=== PATIENT | male | born 2005 | race Caucasian/White ===

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

== ENCOUNTER 2024-04-02 09:42 | Outpatient (CLI) | payer OTHER, SELFPAY ==
--- NOTE | ~2024-04-02 | US_ITS ---
EXAMINATION: US soft tissue groin LT DATE: 04/02/2024 10:00 INDICATION: Unilateral inguinal hernia without obstruction. Soft palpable lump at the left upper pelv is. TECHNIQUE: Multiple grayscale and Doppler ultrasound images of the left upper pelvis/inguinal region of concern were obtained. COMPARISON: None FINDINGS: The palpable abnormality of concern corresponds to the 2.6 x 1.7 x 1.4 cm left testis and associated epididymis. These are remain superficial to the pelvic wall likely in the upper left inguinal canal. The epididymal head measures 6 mm in maximal diameter. Vascular flow identified in the left testis on color Doppler. There is a associated small left hydrocele. IMPRESSION: 1. The left inguinal palpable abnormality of concern corresponds to a likely undescended left testis and epididymis with associated small hydrocele in the upper left inguinal canal. Reviewed, dictated and finalized at location A. E PATCHER IMPRESSION: 1. The left inguinal palpable abnormality of concern corresponds to a likely un descended left testis and epididymis with associated small hydrocele in the upp er left inguinal canal.
== END 2024-04-02 09:43 | disposition home or self-care (01) ==
PROVIDERS: PCP Family Medicine; Visit Provider Nurse Practitioner Family
DX: K40.90 Unilateral inguinal hernia, without obstruction or gangrene, not specified as recurrent (principal)
CPT/HCPCS: 76882

== ENCOUNTER 2024-07-16 13:06 | Outpatient (CLI) | payer OTHER, SELFPAY ==
--- NOTE | ~2024-07-16 | US_ITS ---
EXAMINATION: US scrotum doppler DATE: 07/16/2024 14:13 INDICATION: Undescended testes TECHNIQUE: Sonographic evaluation of the scrotum was performed assessing grayscale appearance and col or Doppler flow. Spectral Doppler evaluation was also performed. COMPARISON: 04/02/2024. FINDINGS: RIGHT TESTICLE: The right testicle measures 2.6 x 4.3 x 1.7 cm. Arterial and venous flow are present. Trace right-sided hydrocele is present. RIGHT EPIDIDYMIS: The right epididymis measures 8.3 x 8.8 x 4.3 mm. LEFT TESTICLE (located within the left groin): The left testicle measures 1.9 x 3.3 x 1.4 cm. Arterial and venous flow are demonstrated. Trace left-sided hydrocele is present. LEFT EPIDIDYMIS: The left epididymis measures 10.9 x 14 x 5.9 mm. IMPRESSION: Redemonstration of the left testicle located within the left groin, rather than within the left scrot um. Trace hydrocele detected bilaterally. Reviewed, dictated and finalized at location A. IMPRESSION: Redemonstration of the left testicle located within the left groin, rather than within the left scrotum. Trace hydrocele detected bilaterally.
--- NOTE | ~2024-07-16 | CT_ITS ---
CT pelvis wo con Ordering provider: Nora Mclaughlin MD History: . retractile testicle . Comparison: None. Technique: CT pelvis without oral and IV contrast. . Automated exposure control and iterative recons truction technique were employed. The dose-length product was 150.64 mGy-cm. Findings: BONES: No pelvic fracture or hip dislocation. Normal visualized lower lumbar spine. The hip and sacro iliac joint spaces are well maintained. SUPERFICIAL SOFT TISSUES: Soft tissue density is seen in the left inguinal area suggestive of Retract ile testicle which measures 3.8 x 1.6 cm. The left scrotum is empty. The right testicle is seen in po sition. PELVIC ORGANS: The bladder is underfilled. VISUALIZED BOWEL AND MESENTERY: Normal. No free air or free fluid. No lymphadenopathy. RETROPERITONEUM: Normal. IMPRESSION: Left retractile testicle with testicle seen in the left inguinal area. Reviewed, dictated and finalized at location A.
--- OUTSIDE RECORDS SUMMARY | 2024-07-16 15:34 | XMS_ITS | Encounter Summary ---
Author Organization [facility] Address 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
--- OUTSIDE RECORDS SUMMARY | 2024-07-16 15:34 | XMS_ITS | Encounter Summary ---
Author Organization [facility] Address 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) Social History Tobacco Use Types Packs/Day Years Used Date Smoking Tobacco: Never Assessed Sex and Gender Information Value Date Recorded Sex Assigned at Not on file Legal Sex Male 4:28 AM TAR CHASER Gender Identity Not on file Sexual Orientation Not on file documented as of this encounter Plan of Treatment Not on file documented as of this encounter Visit Diagnoses Diagnosis 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
--- OUTSIDE RECORDS SUMMARY | 2024-07-16 15:34 | XMS_ITS | Clinical Summary ---
Author Organization [facility] Address [address] [place] [address] Phone Care Team Providers Care Skip Operator Name Role Phone Yesi Suarez MD Primary Care Provider + Allergies No known active allergies Medications pediatric multivitamins Oral Chew Take 1 Tab by mouth daily. 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 Gender Identity Not on file Sexual Orientation Not on file Occupation Industry Job Start Date Job End Date Not on file Not on file Not on file Not on file Last Filed Vital Signs Vital Sign Reading Time Taken Comments Blood Pressure 100/57 08/22/2012 10:04 AM CDT Pulse 95 08/22/2012 10:04 AM CDT Temperature 36.6 C (97.9 F) 08/22/2012 10:04 AM CDT Respiratory Rate 26 08/22/2012 10:0 4 AM CDT Oxygen Saturation 100% 08/22/2012 10: 04 AM CDT Inhaled Oxygen Concentration - - Weight 26.7 kg (58 lb 12.8 oz) 08/22/2012 7:08 A M CDT Height 127 cm (4' 2 ) 08/22/2012 7:08 AM CDT Head Circumference 42.5 cm 04/20/2005 3:05 PM ELECTRONIC EQUIPMENT REPAIRER Head Circumference Percentile 3.48% 04/20/2005 3:05 PM ELECTRONIC EQUIPMENT REPAIRER Growth Chart: WHO (Boys, 0-2 years) Body Mass Index 16.54 08/22/2012 7:08 AM CDT Body Mass Index Percentile 66.46% 08/22/2012 7:0 8 AM CDT Growth Chart: [facility] (Boys, 2-2 0 Years) Plan of Treatment Health Maintenance Due Date Last Done Comments CHLAMYDIA SCREENING (ANNUAL) 11-24 YEARS 08/05/2015 INFLUENZA VACCINE (#1) 2023 DTAP/TDAP/TD VACCINES (7 - Td or Tdap) 01/11/2026 01/12/2016, 12/30/2009, 12/23/2005, Additional history exists HEPATITIS B VACCINES Completed 06/24/2005, 04/07/2005, 2004 PNEUMOCOCCAL VACCINE 0-49 YEARS Aged Out 12/23/2005, 04/07/2005, 01/08/2005, Additional history exists No longer eligible based on patient's age to complete this topic HPV VACCINES Completed 12/02/2016, 01/12/2016 Medical Devices Implanted Type Area Cable Systems Installer Device Identifier Shelf Expiration Date Model / Serial / Lot Tube Vent Collar Button Ultrasil [id number] - [id number] Implanted:Qty: 1 on 08/22/2012 by Clifford Wynne MD at [facility] Ear Bilateral : Ear [facility] 06/24/2022 [id number] / / [id number] Insurance BLUE ACCESS [employer]ICE [facility] PERSONIFY HEALTH OA Advance Directives For more information, please contact: [phone] * Full Code (Latest Code Status on File) Date Activated Date Inactivated Comments 08/22/2012 9:55 AM 08/22/2012 12:08 PM * Full Code Date Activated Date Inactivated Comments 08/22/2012 8:27 AM 08/22/2012 9:55 AM Care Teams Skip Operator Relationship Specialty Start Date End Date Yesi Suarez MD [address] [place] [phone] PCP - General Internal Medicine 09/09/11
--- OUTSIDE RECORDS SUMMARY | 2024-07-16 15:34 | XMS_ITS | Patient Health Summary ---
Author Organization [facility] Address [address] [place] [address] Care Team Providers Care Elevator Tender Name Role Phone Unavailable Primary Care Provider Unavailabl e Note from [facility],non-owned Affiliates and Associated Physician Practices is amultiple site organization consisting of ambulatory clinics and hospital sitesin [place], [place], [place] and [place]. This disclosure is being madepursuant to the Care Everywhere program and may not contain all information available regarding this patient. Last updated 18.[facility] Social History Tobacco Use Types Packs/Day Years Used Date Smoking Tobacco: Never Assessed Sex and Gender Information Value Date Recorded Sex Assigned at Not on file Gender Identity Not on file Sexual Orientation Not on file
--- OUTSIDE RECORDS SUMMARY | 2024-07-16 15:34 | XMS_ITS | Encounter Summary ---
Author Organization [facility] Address 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
--- OUTSIDE RECORDS SUMMARY | 2024-07-16 15:34 | XMS_ITS | Encounter Summary ---
Author Organization [employer] (Inspect Manager)[facility] Address [address] [place] [address] Care Team Providers Care Buhr Dresser Name Role Phone Yesi Suarez MD Primary Care Provider + Encounter Details Date Type Department Care Team (Latest Contact Info) Description 2004 Outpatient Historical HIS [facility] Ward, Grover Alvarado MD [address] [place] [phone] ANOMAL SKULL/FACE BONES (Primary Dx) Social History Tobacco Use Types Packs/Day Years Used Date Smoking Tobacco: Never Assessed Sex and Gender Information Value Date Recorded Sex Assigned at Not on file Legal Sex Male 4:28 AM L D RN Gender Identity Not on file Sexual Orientation Not on file documented as of this encounter Plan of Treatment Not on file documented as of this encounter Visit Diagnoses Diagnosis 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
--- OUTSIDE RECORDS SUMMARY | 2024-07-16 15:34 | XMS_ITS | Encounter Summary ---
Author Organization [facility] Address [address] [place] [address] Care Team Providers Care Bilingual Hr Generalist Name Role Phone Yesi Suarez MD Primary Care Provider + Encounter Details Date Type Department Care Team (Late st Contact Info) Description 11/28/2006 Outpatient Historical [facility] Mckayla Bryan MD [address] [facility] [place] [address] Er, Authorized P NO ADDRESS ON FILE Unspecified Otitis Media (Primary Dx) Social History Tobacco Use Types Packs/Day Years Used Date Smoking Tobacco: Never Assessed Sex and Gender Information Value Date Recorded Sex Assigned at Not on file 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 Gender Identity Not on file Sexual Orientation Not on file documented as of this encounter Plan of Treatment Not on file documented as of this encounter Procedures Procedure Name Priority Date/Time Associated Diagnosis Comments CBC WITH DIFFERENTIAL Routine 11/28/2006 1:25 PM CDT CBC WITH DIFFERENTIAL Routine 11/28/2006 1:25 PM CDT CBC WITH DIFFERENTIAL Routine 11/28/2006 1:25 PM CDT LIPASE Routine 11/28/2006 1:25 PM CDT AMYLASE Routine 11/28/2006 1:25 PM CDT COMPREHENSIVE METABOLIC PANEL Routine 11/28/2006 1:25 PM CDT documented in this encounter Results * (ABNORMAL) CBC WITH DIFFERENTIAL (11/28/2006 1:25 PM CDT) Pathologist [facility] NEUTROPHIL ABSOLUTE 14.34 K/uL INTERFACE SYSTEM LYMPHOCYTE ABSOLUTE 2.83 K/uL INTERFACE SYSTEM MONOCYTE ABSOLUTE 0.53 K/uL INTERFACE SYSTEM EOSINOPHIL ABSOLUTE 0.00 K/uL INTERFACE SYSTEM BASOPHILS ABSOLUTE 0.00 K/uL INTERFACE SYSTEM NEUTROPHILS, SEG 81(H) 16 - 60 % INTERFACE SYSTEM LYMPHOCYTES 16(L) 20 - 70 % INTERFAC E SYSTEM MONOCYTES 3 0 - 7 % INTERFACE SYSTEM EOSINOPHILS 0 0 - 8 % INTERFAC E SYSTEM BASOPHILS 0 0 - 1 % INTERFACE SYSTEM PLATELET EST. Consistent w/ count Normal INTERFACE SYSTEM RBC MORPHOLOGY Normal Normal INTER FACE SYSTEM TOXIC GRANULATION Slight INTERFACE SYSTEM 11/28/2006 1:25 PM CDT Mckayla Park MD HEMATOLOGY ORDERABLES Edit ed Performing Organization Address [facility] Phone Number INTERFACE SYSTEM Refer to clinic/hospital department * CBC WITH DIFFERENTIAL (11/28/2006 1:25 PM CDT) [facility] NRBC 0 <=0 /100 WBC INTERFACE SYSTEM 11/28/2006 1:25 PM CDT Mckayla Park MD HEMATOLOGY ORDERABLES Edit ed Performing Organization Address [facility] Phone Number INTERFACE SYSTEM Refer to clinic/hospital department * (ABNORMAL) CBC WITH DIFFERENTIAL (11/28/2006 1:25 PM CDT) Pathologist [facility] WBC 17.7(H) 6.0 - 15.5 K/uL INTERFACE SYSTEM RBC 4.93 3.90 - 5.30 M/uL INTERFACE SYSTEM HEMOGLOBIN 14.0(H) 11.5 - 13.5 g/dL INTERFACE SYSTEM HEMATOCRIT 39.6 34.0 - 40.0 % INTERFACE SYSTEM MCV 80.3 75.0 - 87.0 fL INTERFACE SYSTEM MCH 28.4(H) 22.0 - 28.0 pg INTERFACE SYSTEM MCHC 35.4 30.0 - 36.0 % INTERFACE SYSTEM RDW 13.2 11.5 - 14.5 % INTERFACE SYSTEM RDW-STDEV 38.2 37.1 - 48.7 fL INTERFACE SYSTEM PLATELETS 376(H) 140 - 350 K/uL INTERFACE SYSTEM MPV 10.3 9.3 - 12.4 fL INTERFACE SYSTEM 11/28/2006 1:25 PM CDT Mckayla Park MD HEMATOLOGY ORDERABLES Edit ed Performing Organization Address City/[facility] Co de Phone Number INTERFACE SYSTEM Refer to clinic/hospital department * LIPASE (11/28/2006 1:25 PM CDT) LIPASE 16 13 - 60 U/L INTERFAC E SYSTEM 11/28/2006 1:25 PM CDT Mckayla Park MD CHEMISTRY ORDERABLES Edite d Performing Organization Address [facility] de Phone Number INTERFACE SYSTEM Refer to clinic/hospital department * (ABNORMAL) COMPREHENSIVE METABOLIC PANEL (11/28/2006 1:25 PM CDT) GLUCOSE 94 60 - 110 mg/dL INTERFACE SYSTEM CREATININE 0.33 0.18 - 0.35 mg/dL INTERFACE SYSTEM CALCIUM 9.9 8.8 - 10.8 mg/dL INTERFACE SYSTEM ALKALINE PHOSPHATASE 259 40 - 390 U/L INTERFACE SYSTEM AST 37 12 - 38 U/L INTERFACE SYSTEM ALT 25 0 - 41 U/L INTERFACE SYSTEM TOTAL PROTEIN 7.3 5.9 - 7.8 g/dL INTERFACE SYSTEM ALBUMIN 5.0 3.8 - 5.4 g/dL INTERFACE SYSTEM BILIRUBIN TOTAL 0.2 0.2 - 1.0 mg/dL INTERFACE SYSTEM BUN 4(L) 6 - 20 mg/dL INTERFACE SYSTEM SODIUM 140 135 - 145 mmol/L INTERFACE SYSTEM POTASSIUM 4.9(H) 3.3 - 4.6 mmol/L INTERFACE SYSTEM CHLORIDE 104 96 - 108 mmol/L INTERFACE SYSTEM CO2 21(L) 22 - 30 mmol/L INTERFACE SYSTEM GFR, N/A:MDRD equation validated for pts. >18 yrs. >=60 mL/min/1 .7 sq meter INTERFACE SYSTEM GFR N/A:MDRD equation validated for pts. >18 yrs. >=60 mL/min/1 .7 sq meter INTERFACE SYSTEM Comment: Estimated GFR rate interpretative information for both Americans and non- Americans is available on the [facility] at: [email or web address] Select: Lab Policies and Procedures Select: Reference Ranges - GFR 11/28/2006 1:25 PM CDT Mckayla Park MD CHEMISTRY ORDERABLES Edite d Performing Organization Address City/[facility] Co de Phone Number INTERFACE SYSTEM Refer to clinic/hospital department * AMYLASE (11/28/2006 1:25 PM CDT) AMYLASE 75 28 - 100 U/L INTERFACE SYSTEM 11/28/2006 1:25 PM CDT Mckayla Park MD CHEMISTRY ORDERABLES Edite d Performing Organization Address [facility] de Phone Number INTERFACE SYSTEM Refer to clinic/hospital department documented in this encounter Visit Diagnoses Diagnosis Unspecified otitis media- Primary documented in this encounter Care Teams Bilingual Hr Generalist Relationship Specialty Start Date End Date Yesi Suarez MD [address] [place] [phone] PCP - General Internal Medicine 09/09/11 documented as of this encounter
--- OUTSIDE RECORDS SUMMARY | 2024-07-16 15:34 | XMS_ITS | Referral Summary ---
Author Organization [facility] Address [address] [place] [address] [place] [address] Care Team Providers Care Intelligence Group Supervisor Name Role Phone Unavailable Primary Care Provider Unavailabl e Source Comments [facility],non-[facility] Affiliates and Associated Physician Practices is amultiple site organization consisting of ambulatory clinics and hospital sitesin [place], [place], [place] and [place]. This disclosure is being madepursuant to the Care Everywhere program and may not contain all information available regarding this patient. Last updated 18.[facility] Social History Tobacco Use Types Packs/Day Years Used Date Smoking Tobacco: Never Assessed Sex and Gender Information Value Date Recorded Sex Assigned at Not on file Gender Identity Not on file Sexual Orientation Not on file Plan of Treatment Not on file
--- OUTSIDE RECORDS SUMMARY | 2024-07-16 15:34 | XMS_ITS | Encounter Summary ---
Author Organization [facility] Address 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
--- OUTSIDE RECORDS SUMMARY | 2024-07-16 15:34 | XMS_ITS | Encounter Summary ---
Author Organization [facility] Address 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
--- OUTSIDE RECORDS SUMMARY | 2024-07-16 15:34 | XMS_ITS | Encounter Summary ---
Author Organization [facility] Address 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
--- OUTSIDE RECORDS SUMMARY | 2024-07-16 15:35 | XMS_ITS | Encounter Summary ---
Author Organization [facility] Address 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
--- OUTSIDE RECORDS SUMMARY | 2024-07-16 15:35 | XMS_ITS | Encounter Summary ---
Author Organization [facility] Address 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
--- OUTSIDE RECORDS SUMMARY | 2024-07-16 15:35 | XMS_ITS | Clinical Summary ---
Author Organization [facility] Address [address] [place] [address] Care Team Providers Care Logging Equipment Operator Name Role Phone Unavailable Primary Care Provider Unavailabl e Source Comments [facility],non-owned Affiliates and Associated Physician Practices is amultiple site organization consisting of ambulatory clinics and hospital sitesin [place], [place], [place] and [place]. This disclosure is being madepursuant to the Care Everywhere program and may not contain all information available regarding this patient. Last updated 18.[facility] Social History Tobacco Use Types Packs/Day Years Used Date Smoking Tobacco: Never Assessed Sex and Gender Information Value Date Recorded Sex Assigned at Not on file Gender Identity Not on file Sexual Orientation Not on file Plan of Treatment Health Maintenance Due Date Last Done Comments HIV SCREENING 08/05/2019 HPV VACCINE (1 - Male 3-dose series) 08/05/2019 MENINGOCOCCAL (Group B) VACC INE SHARED DECISION-MAKING (1 of 2 - Standard) 2020 HEPATITIS C SCREENING 07/31/2022 DTAP/TDAP/TD VACCINES (1 - Tdap) 08/05/2023 HEPATITIS B VACCINE (1 of 3 - 19+ 3-dose series) 08/05/2023 COVID-19 VACCINE (1 - 2023-2 5 season) 2024 INFLUENZA VACCINE (#1) 2024 DEPRESSION SCREENING 05/02/2024 ZOSTER VACCINE (1 of 2) 2054 HIB VACCINE Aged Out No longer eligi ble based on patient's age to complete this topic MENINGOCOCCAL GROUPS A/C/Y/W VACCINE Aged Out No longer eligible b ased on patient's age to complete this topic PNEUMOCOCCAL VACCINE Aged Out No long er eligible based on patient's age to complete this topic
--- OUTSIDE RECORDS SUMMARY | 2024-07-16 15:35 | XMS_ITS | Encounter Summary ---
Author Organization [facility] Address 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 Gender Identity Not on file Sexual Orientation Not on file documented as of this encounter Plan of Treatment Not on file documented as of this encounter Procedures Procedure Name Priority Date/Time Associated Diagnosis Comments CBC WITH DIFFERENTIAL Routine 2004 6:15 AM CDT CBC WITH DIFFERENTIAL Routine 2004 6:15 AM CDT CBC WITH DIFFERENTIAL Routine 2004 6:15 AM CDT BASIC METABOLIC PANEL Routine 2004 6:15 AM CDT CBC WITH DIFFERENTIAL Routine 2004 5:30 PM CDT CBC WITH DIFFERENTIAL Routine 2004 5:30 PM CDT CBC WITH DIFFERENTIAL Routine 2004 5:30 PM CDT BASIC METABOLIC PANEL Routine 2004 5:30 PM CDT CBC WITH DIFFERENTIAL Routine 2004 4:32 AM CDT CBC WITH DIFFERENTIAL Routine 2004 4:32 AM CDT BASIC METABOLIC PANEL Routine 2004 4:32 AM CDT CBC WITH DIFFERENTIAL Routine 2004 5:00 PM CDT CBC WITH DIFFERENTIAL Routine 2004 5:00 PM CDT BASIC METABOLIC PANEL Routine 2004 5:00 PM CDT documented in this encounter Results * CBC WITH DIFFERENTIAL (2004 6:15 AM CDT) Pathologist [facility] NEUTROPHIL ABSOLUTE 5.81 K/uL INTERFACE SYSTEM LYMPHOCYTE ABSOLUTE 9.92 K/uL INTERFACE SYSTEM MONOCYTE ABSOLUTE 1.20 K/uL INTERFACE SYSTEM EOSINOPHIL ABSOLUTE 0.00 K/uL INTERFACE SYSTEM BASOPHILS ABSOLUTE 0.17 K/uL INTERFACE SYSTEM NEUTROPHILS, SEG 34 16 - 60 % INTERFACE SYSTEM LYMPHOCYTES 58 20 - 70 % INTERFAC E SYSTEM MONOCYTES 7 0 - 7 % INTERFACE SYSTEM EOSINOPHILS 0 0 - 8 % INTERFAC E SYSTEM BASOPHILS 1 0 - 1 % INTERFACE SYSTEM PLATELET EST. Normal Normal INTERF COTY SYSTEM RBC MORPHOLOGY Normal Normal INTER FACE SYSTEM GIANT PLATELETS Present INTE RFACE SYSTEM REVIEWED ON SMEAR WBC & Plt Reviewed INTERFACE SYSTEM 2004 6:15 AM CDT us Canelo Joyner Jr., MD HEMATOLOGY ORDERABLES Final Result Performing Organization Address [facility] Phone Number INTERFACE SYSTEM Refer to clinic/hospital department * CBC WITH DIFFERENTIAL (2004 6:15 AM CDT) Pathologist [facility] NRBC 0 <=0 /100 WBC INTERFACE SYSTEM 2004 6:15 AM CDT us Canelo Joyner Jr., MD HEMATOLOGY ORDERABLES Final Result Performing Organization Address [facility] Phone Number INTERFACE SYSTEM Refer to clinic/hospital department * (ABNORMAL) CBC WITH DIFFERENTIAL (2004 6:15 AM CDT) WBC 17.1 6.0 - 17.5 K/uL INTERFACE SYSTEM RBC 3.78 2.70 - 4.90 M/uL INTERFACE SYSTEM HEMOGLOBIN 11.2 9.0 - 14.0 g/dL INTERFACE SYSTEM HEMATOCRIT 31.6 28.0 - 42.0 % INTERFACE SYSTEM MCV 83.6 74.0 - 115.0 fL INTERFACE SYSTEM MCH 29.6(L) 33.0 - 39.0 pg INTERFACE SYSTEM MCHC 35.4 31.0 - 37.0 % INTERFACE SYSTEM RDW 13.6 11.5 - 14.5 % INTERFACE SYSTEM RDW-STDEV 41.3 37.1 - 48.7 fL INTERFACE SYSTEM PLATELETS 192 140 - 350 K/uL INTERFACE SYSTEM Comment:WBC and Platelets ve rified by smear review. MPV 10.0 9.3 - 12.4 fL INTERFACE SYSTEM 2004 6:15 AM CDT us Canelo Joyner Jr., MD HEMATOLOGY ORDERABLES Final Result Performing Organization Address [facility] Phone Number INTERFACE SYSTEM Refer to clinic/hospital department * (ABNORMAL) BASIC METABOLIC PANEL (2004 6:15 AM CDT) GLUCOSE 95 60 - 110 mg/dL INTERFACE SYSTEM CREATININE 0.3 0.2 - 0.7 mg/dL INTERFACE SYSTEM CALCIUM 8.9(L) 9.0 - 11.0 mg/dL INTERFACE SYSTEM BUN 9 6 - 20 mg/dL INTERFACE SYSTEM SODIUM 142 135 - 145 mmol/L INTERFACE SYSTEM POTASSIUM 5.0 3.4 - 5.6 mmol/L INTERFACE SYSTEM CHLORIDE 111(H) 96 - 108 mmol/L INTERFACE SYSTEM CO2 21(L) 22 - 30 mmol/L INTERFACE SYSTEM 2004 6:15 AM CDT us Canelo Joyner Jr., MD CHEMISTRY ORDERABLES F inal Result Performing Organization Address [facility] de Phone Number INTERFACE SYSTEM Refer to clinic/hospital department * (ABNORMAL) CBC WITH DIFFERENTIAL (2004 5:30 PM CDT) Pathologist [facility] NEUTROPHIL ABSOLUTE 8.18 K/uL INTERFACE SYSTEM LYMPHOCYTE ABSOLUTE 3.10 K/uL INTERFACE SYSTEM MONOCYTE ABSOLUTE 0.87 K/uL INTERFACE SYSTEM EOSINOPHIL ABSOLUTE 0.00 K/uL INTERFACE SYSTEM BASOPHILS ABSOLUTE 0.00 K/uL INTERFACE SYSTEM NEUTROPHILS, SEG 66(H) 16 - 60 % INTERFACE SYSTEM LYMPHOCYTES 25 20 - 70 % INTERFAC E SYSTEM MONOCYTES 7 0 - 7 % INTERFACE SYSTEM EOSINOPHILS 0 0 - 8 % INTERFAC E SYSTEM BASOPHILS 0 0 - 1 % INTERFACE SYSTEM MYELOCYTES 2(H) <=0 % INTERFACE SYSTEM PLATELET EST. Normal Normal INTERF COTY SYSTEM RBC MORPHOLOGY Normal Normal INTER FACE SYSTEM REVIEWED ON SMEAR WBC & Plt Reviewed INTERFACE SYSTEM 2004 5:30 PM CDT Canelo Joyner Jr., MD HEMATOLOGY ORDERABLES Final Result Performing Organization Address [facility] Phone Number INTERFACE SYSTEM Refer to clinic/hospital department * CBC WITH DIFFERENTIAL (2004 5:30 PM CDT) [facility] NRBC 0 <=0 /100 WBC INTERFACE SYSTEM 2004 5:30 PM CDT Canelo Joyner Jr., MD HEMATOLOGY ORDERABLES Final Result Performing Organization Address [facility] Phone Number INTERFACE SYSTEM Refer to clinic/hospital department * (ABNORMAL) CBC WITH DIFFERENTIAL (2004 5:30 PM CDT) Pathologist [facility] WBC 12.4 6.0 - 17.5 K/uL INTERFACE SYSTEM RBC 4.33 2.70 - 4.90 M/uL INTERFACE SYSTEM HEMOGLOBIN 13.2 9.0 - 14.0 g/dL INTERFACE SYSTEM HEMATOCRIT 36.2 28.0 - 42.0 % INTERFACE SYSTEM MCV 83.6 74.0 - 115.0 fL INTERFACE SYSTEM MCH 30.5(L) 33.0 - 39.0 pg INTERFACE SYSTEM MCHC 36.5 31.0 - 37.0 % INTERFACE SYSTEM RDW 13.6 11.5 - 14.5 % INTERFACE SYSTEM RDW-STDEV 41.7 37.1 - 48.7 fL INTERFACE SYSTEM PLATELETS 180 140 - 350 K/uL INTERFACE SYSTEM Comment:WBC and Platelets ve rified by smear review. MPV 10.0 9.3 - 12.4 fL INTERFACE SYSTEM 2004 5:30 PM CDT us Canelo Joyner Jr., MD HEMATOLOGY ORDERABLES Final Result Performing Organization Address [facility] Co de Phone Number INTERFACE SYSTEM Refer to clinic/hospital department * (ABNORMAL) BASIC METABOLIC PANEL (2004 5:30 PM CDT) GLUCOSE 119(H) 60 - 110 mg/dL INTERFACE SYSTEM CREATININE 0.3 0.2 - 0.7 mg/dL INTERFACE SYSTEM CALCIUM 8.8(L) 9.0 - 11.0 mg/dL INTERFACE SYSTEM BUN 7 6 - 20 mg/dL INTERFACE SYSTEM SODIUM 140 135 - 145 mmol/L INTERFACE SYSTEM POTASSIUM 4.6 3.4 - 5.6 mmol/L INTERFACE SYSTEM CHLORIDE 105 96 - 108 mmol/L INTERFACE SYSTEM CO2 27 22 - 30 mmol/L INTERFACE SYSTEM 2004 5:30 PM CDT us Canelo Joyner Jr., MD CHEMISTRY ORDERABLES F inal Result Performing Organization Address [facility] Phone Number INTERFACE SYSTEM Refer to clinic/hospital department * (ABNORMAL) CBC WITH DIFFERENTIAL (2004 4:32 AM CDT) NEUTROPHIL ABSOLUTE 6.77 K/uL INTERFACE SYSTEM LYMPHOCYTE ABSOLUTE 2.63 K/uL INTERFACE SYSTEM MONOCYTE ABSOLUTE 0.40 K/uL INTERFACE SYSTEM EOSINOPHIL ABSOLUTE 0.00 K/uL INTERFACE SYSTEM BASOPHILS ABSOLUTE 0.00 K/uL INTERFACE SYSTEM NEUTROPHILS, SEG 65(H) 16 - 60 % INT ERFACE SYSTEM BANDS 2 0 - 4 % INTERFACE SYSTEM LYMPHOCYTES 26 20 - 70 % INTERFAC E SYSTEM MONOCYTES 4 0 - 7 % INTERFACE SYSTEM EOSINOPHILS 0 0 - 8 % INTERFAC E SYSTEM BASOPHILS 0 0 - 1 % INTERFACE SYSTEM MYELOCYTES 2(H) <=0 % INTERFACE SYSTEM PROMYELOCYTE 1(H) <=0 % INTERFA CE SYSTEM PLATELET EST. Slt. Decreased(A) Normal INTERFACE SYSTEM ANISOCYTOSIS Slight INTERFA CE SYSTEM POIKILOCYTES Slight INTERFA CE SYSTEM HYPOCHROMIA Slight INTERFAC E SYSTEM REVIEWED ON SMEAR WBC & Plt Reviewed INTERFACE SYSTEM 2004 4:32 AM CDT Dustin Hanley MD HEMATOLOGY ORDERABLES Final R esult Performing Organization Address [facility] Phone Number INTERFACE SYSTEM Refer to clinic/hospital department * (ABNORMAL) CBC WITH DIFFERENTIAL (2004 4:32 AM CDT) WBC 10.1 6.0 - 17.5 K/uL INTERFACE SYSTEM RBC 4.68 2.70 - 4.90 M/uL INTERFACE SYSTEM HEMOGLOBIN 14.3(H) 9.0 - 14.0 g/dL INTERFACE SYSTEM HEMATOCRIT 38.9 28.0 - 42.0 % INTERFACE SYSTEM MCV 83.1 74.0 - 115.0 fL INTERFACE SYSTEM MCH 30.6(L) 33.0 - 39.0 pg INTERFACE SYSTEM MCHC 36.8 31.0 - 37.0 % INTERFACE SYSTEM RDW 13.6 11.5 - 14.5 % INTERFACE SYSTEM RDW-STDEV 41.2 37.1 - 48.7 fL INTERFACE SYSTEM PLATELETS 128(L) 140 - 350 K/uL INTERFACE SYSTEM MPV 10.5 9.3 - 12.4 fL INTERFACE SYSTEM 2004 4:32 AM CDT Dustin Hnaley MD HEMATOLOGY ORDERABLES Final R esult Performing Organization Address [facility] Phone Number INTERFACE SYSTEM Refer to clinic/hospital department * (ABNORMAL) BASIC METABOLIC PANEL (2004 4:32 AM CDT) GLUCOSE 148(H) 60 - 110 mg/dL INTERFACE SYSTEM CREATININE 0.3 0.2 - 0.7 mg/dL INTERFACE SYSTEM CALCIUM 8.7(L) 9.0 - 11.0 mg/dL INTERFACE SYSTEM BUN 6 6 - 20 mg/dL INTERFACE SYSTEM SODIUM 140 135 - 145 mmol/L INTERFACE SYSTEM POTASSIUM 5.0 3.4 - 5.6 mmol/L INTERFACE SYSTEM Comment:No visible hemolysis . CHLORIDE 112(H) 96 - 108 mmol/L INTERFACE SYSTEM CO2 21(L) 22 - 30 mmol/L INTERFACE SYSTEM 2004 4:32 AM CDT Dustin Hanley MD CHEMISTRY ORDERABLES Final Re sult Performing Organization Address [facility] Phone Number INTERFACE SYSTEM Refer to clinic/hospital department * (ABNORMAL) CBC WITH DIFFERENTIAL (2004 5:00 PM CDT) NEUTROPHIL ABSOLUTE 7.81 K/uL INTERFACE SYSTEM LYMPHOCYTE ABSOLUTE 3.78 K/uL INTERFACE SYSTEM MONOCYTE ABSOLUTE 0.61 K/uL IN TERFACE SYSTEM EOSINOPHIL ABSOLUTE 0.00 K/uL INTERFACE SYSTEM BASOPHILS ABSOLUTE 0.00 K/uL INTERFACE SYSTEM NEUTROPHILS, SEG 64(H) 16 - 60 % INT ERFACE SYSTEM LYMPHOCYTES 31 20 - 70 % INTERFAC E SYSTEM MONOCYTES 5 0 - 7 % INTERFACE SYSTEM EOSINOPHILS 0 0 - 8 % INTERFAC E SYSTEM BASOPHILS 0 0 - 1 % INTERFACE SYSTEM PLATELET EST. Normal Normal INTERF COTY SYSTEM ANISOCYTOSIS Slight INTERFA CE SYSTEM POIKILOCYTES Slight INTERFA CE SYSTEM 2004 5:00 PM CDT Dustin Hanley MD HEMATOLOGY ORDERABLES Final R esult Performing Organization Address [facility] Phone Number INTERFACE SYSTEM Refer to clinic/hospital department * (ABNORMAL) CBC WITH DIFFERENTIAL (2004 5:00 PM CDT) WBC 12.2 6.0 - 17.5 K/uL INTERFACE SYSTEM RBC 5.16(H) 2.70 - 4.90 M/uL INTERFACE SYSTEM HEMOGLOBIN 15.4(H) 9.0 - 14.0 g/dL INTERFACE SYSTEM HEMATOCRIT 43.6(H) 28.0 - 42.0 % INTERFACE SYSTEM MCV 84.5 74.0 - 115.0 fL INTERFACE SYSTEM MCH 29.8(L) 33.0 - 39.0 pg INTERFACE SYSTEM MCHC 35.3 31.0 - 37.0 % INTERFACE SYSTEM RDW 13.7 11.5 - 14.5 % INTERFACE SYSTEM RDW-STDEV 42.0 37.1 - 48.7 fL INTERFACE SYSTEM PLATELETS 150 140 - 350 K/uL INTERFACE SYSTEM MPV 9.9 9.3 - 12.4 fL INTERFACE SYSTEM 2004 5:00 PM CDT us Dustin Hanley MD HEMATOLOGY ORDERABLES Final R esult Performing Organization Address [facility] Co de Phone Number INTERFACE SYSTEM Refer to clinic/hospital department * (ABNORMAL) BASIC METABOLIC PANEL (2004 5:00 PM CDT) GLUCOSE 105 60 - 110 mg/dL INTERFACE SYSTEM CREATININE 0.2 0.2 - 0.7 mg/dL INTERFACE SYSTEM CALCIUM 8.3(L) 9.0 - 11.0 mg/dL INTERFACE SYSTEM BUN 9 6 - 20 mg/dL INTERFACE SYSTEM SODIUM 140 135 - 145 mmol/L INTERFACE SYSTEM POTASSIUM 4.2 3.4 - 5.6 mmol/L INTERFACE SYSTEM CHLORIDE 113(H) 96 - 108 mmol/L INTERFACE SYSTEM CO2 20(L) 22 - 30 mmol/L INTERFACE SYSTEM 2004 5:00 PM CDT us Dustin Hanley MD CHEMISTRY ORDERABLES Final Re sult Performing Organization Address [facility] Phone Number INTERFACE SYSTEM Refer to clinic/hospital department documented in this encounter 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
--- OUTSIDE RECORDS SUMMARY | 2024-07-16 15:35 | XMS_ITS | Encounter Summary ---
Author Organization [facility] Address [address] [place] [address] Care Team Providers Care Telegraph Office Telephone Clerk Name Role Phone Yesi Suarez MD Primary Care Provider + Encounter Details Date Type Department Care Team (Late st Contact Info) Description 2004 Outpatient Historical [facility] Department of Peds at [facility] [address] [place] [id number] Doris Smith MD [address] [facility] [address] [address] Social History Tobacco Use Types Packs/Day Years Used Date Smoking Tobacco: Never Assessed Sex and Gender Information Value Date Recorded Sex Assigned at Not on file 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
--- OUTSIDE RECORDS SUMMARY | 2024-07-16 15:35 | XMS_ITS | Encounter Summary ---
Author Organization [facility] Address [address] [place] [address] Care Team Providers Care Immigration Services Officer Name Role Phone Yesi Suarez MD Primary Care Provider + Encounter Details Date Type Department Care Team (Late st Contact Info) Description 11/23/2005 Outpatient Historical [facility] Department of Peds at [facility] [address] 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
--- OUTSIDE RECORDS SUMMARY | 2024-07-16 15:35 | XMS_ITS | Encounter Summary ---
Author Organization [facility] Address [address] [place] [address] Care Team Providers Care Blind Slat Stapling Machine Operator Name Role Phone Yesi Suarez MD Primary Care Provider + Encounter Details Date Type Department Care Team (Late st Contact Info) Description 04/20/2005 Outpatient Historical [facility] [address] [address] Dustin Hanley MD NO ADDRESS ON FILE Social History Tobacco Use Types Packs/Day Years Used Date Smoking Tobacco: Never Assessed Sex and Gender Information Value Date Recorded Sex Assigned at Not on file 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 Gender Identity Not on file Sexual Orientation Not on file documented as of this encounter Last Filed Vital Signs Vital Sign Reading Time Taken Comments Blood Pressure - - Pulse - - Temperature - - Respiratory Rate - - Oxygen Saturation - - Inhaled Oxygen Concentration - - Weight - - Height - - Head Circumference 42.5 cm 04/20/2005 3:05 PM ORNAMENTAL IRON WORKER APPRENTICE Head Circumference Percentile 3.48% 04/20/2005 3:05 PM ORNAMENTAL IRON WORKER APPRENTICE Growth Chart: WHO (Boys, 0-2 years) Body Mass Index - - documented in this encounter Plan of Treatment Not on file documented as of this encounter Visit Diagnoses Not on filedocumented in this encounter Care Teams Blind Slat Stapling Machine Operator Relationship Specialty Start Date End Date Yesi Suarez MD [address] [place] [phone] PCP - General Internal Medicine 09/09/11 documented as of this encounter
--- OUTSIDE RECORDS SUMMARY | 2024-07-16 15:35 | XMS_ITS | Encounter Summary ---
Author Organization [employer] Address [address] [place] [address] Care Team Providers Care Complaint Evaluation Officer Name Role Phone Yesi Suarez MD Primary Care Provider + Encounter Details Date Type Department Care Team (Latest Contact Info) Description 2004 Outpatient Historical [facility] [address] 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
--- OUTSIDE RECORDS SUMMARY | 2024-07-16 15:35 | XMS_ITS | Encounter Summary ---
Author Organization [facility] Address 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
== END 2024-07-16 13:07 | disposition home or self-care (01) ==
PROVIDERS: PCP Family Medicine; Visit Provider Urology
DX: Q55.22 Retractile testis (principal)
CPT/HCPCS: 72192; 76870; 93976